=== PATIENT | male | born 1965 | race Caucasian/White ===

== ENCOUNTER → 2024-01-12 | Outpatient (CLI) | payer OTHER, SELFPAY ==
--- NOTE | 2024-01-12 13:34 | MRI_ITS ---
STUDY: MR PROSTATE GLAND/ PELVIS WITH T WITHOUT CONTRAST REASON FOR EXAM: Male, 58 years old. int risk prstate cancer, planning for XRT -- eval disease TECHNIQUE: Standardized fat and water weighted pulse sequences were obtained in all 3 orthogonal planes, pre-and post contrast administration. IV 23ML CLARISCAN was administered for the contrast portion of the examination. COMPARISON: PET/CT exam dated December 21, 2023. MRI of the prostate dated October 18, 2023. FINDINGS: New finding since the prior MRI of the prostate gland dated October 18, 2023: * Interval appearance of postbiopsy or external treatment placement encapsulated fluid/seroma/hematoma measuring 2.56 cm at the posterior midline and left side of the left peripheral zone posterior capsule located between the prostate gland and rectum and impinging upon the left anterior aspect of the rectum. * Redemonstration of oval lobular low signal tissue at the posterior midline of the peripheral zones and posterior medial aspect of the right peripheral zone measuring 2.42 cm in diameter on the prior study, and slightly smaller on the current study at 2.07 cm due to interval biopsy of the tissue in this region. This abnormal lobular tissue demonstrates bright diffusion weighted signal and dark ADC signal as well as enhancement on the postcontrast study, which is typically associated with neoplasm. Intermixed fibrosis is suspected as well. * It is possible focal prostatitis/inflammation is mimicking malignant features * Some abnormal uptake in the prostate gland was also demonstrated on the prostate PET/CT exam but did not fully meet criteria for viable malignant neoplasm Prostate gland volume/size: 6.01 x 4.53 x 5.15 cm, which is mildly enlarged. Anterior fibromuscular stroma: Normal. Peripheral zone: Abnormal oval lobular intermediate to low signal tissue in the posterior medial aspect of the right peripheral zone extending to the midline with a left peripheral zone currently measuring 2.07 cm in diameter and demonstrating abnormal diffusion weighted and ADC signal as well as enhancement suspicious for a malignant neoplasm. Intermixed fibrosis is present. Small cyst in linear areas of fibrosis are scattered throughout the left peripheral zone. Linear fibrosis and hyperplastic tissue is also present at the anterior lateral aspect of the right peripheral zone. Central zone: Diffusely heterogeneous, nodular, hyperplastic with intermixed cystic and intermediate to low signal tissue. No distinct malignant appearing lesion is seen on this exam. Diffuse postcontrast enhancement. Transitional zone: Diffusely heterogeneous, nodular, hyperplastic with intermixed cystic and intermediate to low signal tissue. No distinct malignant appearing lesion is seen on this exam. Diffuse postcontrast enhancement. Hyperplastic extending into the trigone of the bladder asymmetrically prominent on the left compared to the right. Prostate capsule: Intact other than area were postbiopsy/treatment fluid collection is present at the posterior midline of the peripheral zones and posterior left side of the peripheral zone. Seminal vesicles: Normal bilaterally Pelvic sidewall lymphadenopathy: No lymphadenopathy is present. Bony structures: No bone marrow edema or lytic or blastic lesions or abnormally enhancing lesions are present on the current study. Normal urinary bladder. Normal visualized small intestine. Normal visualized colon. There is no pelvic fluid. There is no pelvic mass lesion or lymphadenopathy. Normal abdominal wall. MRI/Pelvis W/WO Contrast IMPRESSION: New finding since the prior MRI of the prostate gland dated October 18, 2023: 1. Interval appearance of postbiopsy or external treatment placement encapsulated fluid/seroma/hematoma measuring 2.56 cm at the posterior midline and left side of the left peripheral zone posterior capsule located between the prostate gland and rectum and impinging upon the left anterior aspect of the rectum. 2. Redemonstration of oval lobular low signal tissue at the posterior midline of the peripheral zones and posterior medial aspect of the right peripheral zone measuring 2.42 cm in diameter on the prior study, and slightly smaller on the current study at 2.07 cm due to interval biopsy of the tissue in this region. This abnormal lobular tissue demonstrates bright diffusion weighted signal and dark ADC signal as well as enhancement on the postcontrast study, which is typically associated with neoplasm. Intermixed fibrosis is suspected as well. 3. It is possible focal prostatitis/inflammation is mimicking malignant features 4. Some abnormal uptake in the prostate gland was also demonstrated on the prostate PET/CT exam but did not fully meet criteria for viable malignant neoplasm 5. PI-RADS 3: intermediate (the presence of clinically significant cancer is equivocal) 6. Expected management and treatment based on clinical symptomology and pathology findings is recommended. 7. It is possible malignant tissue is intermixed with inflamed tissue suppressing the abnormal characteristics of the tumor material. Reference information: Normal prostate tissue Benign prostatic hypertrophy cancer/tumor - low signal peripheral , transitional, and central zones malignancy appears as bright on DWI and low signal on ADC map Prostate imaging-reporting and data system (PI-RADS) PI-RADS 1: very low (clinically significant cancer is highly unlikely to be present) PI-RADS 2: low (clinically significant cancer is unlikely to be present) PI-RADS 3: intermediate (the presence of clinically significant cancer is equivocal) PI-RADS 4: high (clinically significant cancer is likely to be present) PI-RADS 5: very high (clinically significant cancer is highly likely to be present) PI-RADS X: component of exam technically inadequate or not performed Prostate malignancy distribution: Peripheral zone: 70-80% Transitional zone: 10-20% Central zone: 5% or less Electronically Signed: Sami Qiu MD at 9:52 EDT Reading Location ID and State: [facility] / [place] , Service support ,
== END | disposition home or self-care (01) ==
PROVIDERS: PCP Family Medicine; Referring Provider Student in an Organized Health Care Education/Training Program; Visit Provider Student in an Organized Health Care Education/Training Program
DX: C61 Malignant neoplasm of prostate (principal)
CPT/HCPCS: 72197; A9575